=== PATIENT | male | born 1980 | race African-American/Black ===

== ENCOUNTER 2024-09-26 15:34 | Inpatient (IN) | payer MEDICARE, OTHER ==
[~2024-09-26] VITALS: Ht 193 cm; Wt 96.1 kg
--- NOTE | 2024-09-26 15:56 | ED.PDOC ---
HPI Comments This is a 44 year old male presenting to the ED with chief complaint of HTN and chest tightness. 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 Patient relays that due to the cancer, he developed hypertension and has been complaint with his Amlodipine and Losartan. Patient states that he took his BP yesterday and it came back as 210/98 along with having symptoms of headache, white spots in vision, and left hand numbness/cramping, breaking his phone screen when it occurred. Patient notes that he took 2 doses of each medication, drank water, and took a cold shower due to feeling hot, however, 20 minutes later his BP was at 210/145. Patient reports that he could not sleep the whole night due to his anxiety with his high BP, taking it again this morning and coming back at 203/123. Patient was advised by his family to come into the ED for further evaluation. Patient denies any SOB, dizziness, N/V, weakness, vision loss, or abdominal pain. Time Seen by MD: 15:53 Reviewed Notes: Nurses Notes, Medications, Allergies Allergies: Coded Allergies: NO KNOWN ALLERGIES (Unverified , 09/26/24) Information Source: Patient Mode of Arrival: Ambulatory Severity: Moderate Timing: Days Duration: Since onset Prehospital treatment: None Location: Substernal Radiation: No Radiation Quality: Tightness Onset: At Rest Cardiac Risk Factors: HTN Past Medical History PAST MEDICAL HISTORY: Cancer (Nasal cancer), HTN Surgical History (Other): Esophageal surgeries Family History Family History: Reviewed,noncontributory to illness Social History Smoker: Non-Smoker Alcohol: Denies ETOH Use Drugs: Denies Drug Use Lives In: Home Constitutional: denies: chills, diaphoresis, fatigue, fever, malaise, sweats, weakness, others EENTM: reports: blurred vision; denies: double vision, ear bleeding, ear discharge, ear drainage, ear pain, ear ringing, eye pain, eye redness, hearing loss, mouth pain, mouth swelling, nasal discharge, nose bleeding, nose congestion, nose pain, photophobia, tearing, throat pain, throat swelling, voice changes, others Respiratory: denies: cough, hemoptysis, orthopnea, SOB at rest, shortness of breath, SOB with excertion, stridor, wheezing, others Cardiovascular: reports: chest pain; denies: dizzy spells, diaphoresis, Dyspnea on exertion, edema, irregular heart beat, left arm pain, lightheadedness, palpitations, PND, syncope, others Gastrointestinal: denies: abdomen distended, abdominal pain, blood streaked bowels, constipated, diarrhea, dysphagia, difficulty swallowing, hematemesis, melena, nausea, poor appetite, poor fluid intake, rectal bleeding, rectal pain, vomiting, others Genitourinary: denies: burning, dysuria, flank pain, frequency, hematuria, incontinence, penile discharge, penile sore, pain, testicle pain, testicle swelling, urgency, others Neurological: reports: headache, others (Left hand numbness); denies: dizziness, fainting, left sided numbness, left sided weakness, numbness, paresthesia, pre-existing deficit, right sided numbness, right sided weakness, seizure, speech problems, tingling, tremors, weakness Musculoskeletal: denies: back pain, gout, joint pain, joint swelling, muscle pain, muscle stiffness, neck pain, others Integumetry: denies: bruises, change in color, change in hair/nails, dryness, laceration, lesions, lumps, rash, wounds, others Allergic/Immunocompromised: denies: Difficulty Healing, Frequent Infections, Hives, Itching, others Hematologic/Lymphatic: denies: anemia, blood clots, easy bleeding, easy bruising, swollen glands, others Endocrine: denies: excessive hunger, excessive sweating, excessive thirst, excessive urination, flushing, intolerance to cold, intolerance to heat, unexplained weight gain, unexplained weight loss, others Psychiatric: denies: anxiety, bipolar disorder, depression, hopeless, panic disorder, schizophrenia, sleepless, suicidal, others All Other Systems: Reviewed and Negative Physical Exam General Appearance: Moderate Distress HEENT: Normal ENT Inspection, Pharynx Normal, TMs Normal Neck: Full Range of Motion, Non-Tender, Normal, Normal Inspection Respiratory: Chest Non-Tender, Lungs Clear, No Accessory Muscle Use, No R espiratory Distress, Normal Breath Sounds Cardiovascular: No Edema, No JVD, No Murmur, No Gallop, Normal Peripheral Pulses, Regular Rate/Rhythm Breast Exam: Deferred Gastrointestinal: No Organomegaly, Non Tender, No Pulsatile Mass, Normal Bowel Sounds, Soft Genitalia: Deferred Pelvic: Deferred Rectal: Deferred Extremities: No calf tenderness, Normal capillary refill, Pedal edema Musculoskeletal : Apperance: Normal Neurologic: Alert, title vehicle service attendant II-XII nml as Tested, No Motor Deficits, Normal Affect, Normal Mood, No Sensory Deficits Cerebellar Function: Normal Reflexes: Normal Skin: Dry, Normal Color, Warm Lymphatic: No Adenopathy EKG EKG : Pulse Rate (adult): 71 [place]: Normal Cardiac Rhythm: NSR Block: None Hypertrophy: None ST: Normal Was a procedure done? Was a procedure done?: No CP Differential Dx Differential Diagnosis: Angina, IA, Pulmonary Embolus Differential Diagnosis: CHF Differential Diagnosis: Pericarditis X-Ray, Labs, Meds, VS Vital Signs Date Time Temp Pulse Resp B/P (MAP) Pulse Ox O2 Delivery O2 Flow Rate FiO2 09/26/24 16:46 98.2 87 18 136/98 (111) 97 98.2 09/26/24 16:46 87 18 97 Room Air* 0 21 09/26/24 16:05 71 09/26/24 15:58 79 09/26/24 15:54 98.0 88 18 161/88 (112) 95 98.0 Lab Test 09/26/24 16:54 09/26/24 16:08 Range/Units Troponin I High Sensitivity 7 5 </=54 ng/L White Blood Count 8.6 4.4-10.8 10^3/uL Red Blood Count 4.53 4.5-5.90 10^6/uL Hemoglobin 15.1 13.5-17.5 g/dL Hematocrit 45.1 41.0-53.0 % Mean Corpuscular Volume 99.6 80.0-100.0 fL Mean Corpuscular Hemoglobin 33.3 H 28.0-32.0 pg Mean Corpuscular Hemoglobin Concent 33.4 32.0-36.0 g/dL Red Cell Distribution Width 13.5 11.8-14.3 % Platelet Count 170 140-450 10^3/uL Mean Platelet Volume 9.6 6.9-10.8 fL Neutrophils (%) (Auto) 78.2 37.0-80.0 % Lymphocytes (%) (Auto) 11.6 10.0-50.0 % Monocytes (%) (Auto) 5.4 0.0-12.0 % Eosinophils (%) (Auto) 4.0 0.0-7.0 % Basophils (%) (Auto) 0.8 0.0-2.0 % Neutrophils # (Auto) 6.7 1.6-8.6 10 ^3/uL Lymphocytes # (Auto) 1.0 0.4-5.4 10 ^3/uL Monocytes # (Auto) 0.5 0-1.3 10 ^3/uL Eosinophils # (Auto) 0.3 0-0.8 10 ^3/uL Basophils # (Auto) 0.1 0-0.2 10 ^3/uL Nucleated Red Blood Cells 0.0 % Sodium Level 143 136-145 mmol/L Potassium Level 3.5 3.5-5.1 mmol/L Chloride Level 105 98-107 mmol/L Carbon Dioxide Level 29 20-31 mmol/L Anion Gap 9 5-15 Blood Urea Nitrogen 10 9-23 mg/dL Creatinine 1.70 H 0.700-1.30 mg/dL Glomerular Filtration Rate Calc 50 >90 mL/min BUN/Creatinine Ratio 5.9 L 10.0-20.0 Serum Glucose 84 74-106 mg/dL Calcium Level 10.0 8.7-10.4 mg/dL IV Hep-Lock was established The patient's CBC is within normal limits The chemistry panel is within normal limits The troponin level x2 is negative The patient was given hydralazine 15 mg IV push and now the patient's blood pressure is some improved but still elevated We are going to admit the patient to the hospitalist for further management of the patient's blood pressure Time of 1ST Reevaluation: 20:21 Reevaluation 1ST: Unchanged Patient Education/Counseling: Diagnosis, Treatment, Prognosis Family Education/Counseling: No Family Present Additional Information Reviewed patient's previous visit(s): None The following tests were ordered, and results were reviewed by me: Additional information was gathered from interviewing the following independent historian: None I reviewed and agreed with the following test results read by other provider: I discussed treatments and results with medical personnel and: PATIENT Comprehensive systems review obtained and negative except for what is stated in the HPI. SEPSIS Sepsis Screen Physician Orders Urinalysis (09/26/24 15:51) Heplock Iv (09/26/24 15:51) Weather Strip Mechanic (09/26/24 15:51) Blood Pressure (09/26/24 15:51) Pulse Oximetry (09/26/24 15:51) Electrocardigram (09/26/24 16:51) Electrocardigram (09/26/24 18:51) Nicardipine Hcl In Sodium Chlo (Cardene (09/26/24 16:30) Vital Signs Date Time Temp Pulse Resp B/P (MAP) Pulse Ox O2 Delivery O2 Flow Rate FiO2 09/26/24 16:46 98.2 87 18 136/98 (111) 97 98.2 09/26/24 16:46 87 18 97 Room Air* 0 21 09/26/24 16:05 71 09/26/24 15:58 79 09/26/24 15:54 98.0 88 18 161/88 (112) 95 98.0 Laboratory Tests Test 09/26/24 16:08 White Blood Count 8.6 10^3/uL (4.4-10.8) Departure 1 Departure Time of Disposition: 20:21 Impression: Primary Impression: Hypertensive crisis Disposition: ADMITTED INPATIENT Admit to: [facility] Condition: Fair Critical Care Note Critical Care Time?: Yes (45 min-critical care time only) Stability Stability form required: Yes Unstable for transfer: Telemetry monitoring (Telemetry monitoring required), ED Physician Assesment (Clinical assesment) Heart Score Heart Score: Heart Score Response (Comments) Value History Highly Suspicious 2 EKG Normal 0 Age 45-64 1 Risk Factors 1 or 2 risk factors 1 Troponin Normal limit 0 Total 4 I personally scribed for AIDA RIOJAS MD ([email or web address]) on 09/26/24 at 15:56. Electronically submitted by Rafael Francisco ([email or web address]). I personally scribed for AIDA RIOJAS MD ([email or web address]) on 09/26/24 at 16:05. Electronically submitted by Rafael Francisco ([email or web address]). AIDA RIOJAS MD Sep 26, 2024 15:56
--- NOTE | 2024-09-26 16:01 | ECG ---
[facility] Test Date: 2024-09-26 Test Time: 15:58:15 Pat Name: SHARITA HERNANDEZ Department: ER Room: 0214T Gender: M [employer] Operator: ABIGAIL : 1980 Requested By: AIDA RIOJAS Order Number: [id number] Reading MD: Guru Dumont Measurements Intervals [place] Rate: 79 P: 62 KS: 144 QRS: 7 QRSD: 86 T: -6 QT: 374 QTc: 429 Interpretive Statements Sinus rhythm Abnormal R-wave progression, early transition LVH with secondary repolarization abnormality Electronically Signed On 09-29-2024 20:01:35 PDT by Guru Dumont Please click the below link to view image of tracing.
[2024-09-26 16:29] LABS: Basophils # (auto) 0.1 10 ^3/uL (0-0.2); Basophils % (auto) 0.8 % (0.0-2.0); Eosinophils # (auto) 0.3 10 ^3/uL (0-0.8); Hematocrit 45.1 % (41.0-53.0); Hemoglobin 15.1 g/dL (13.5-17.5); Lymphocytes % (auto) 11.6 % (10.0-50.0); Mean Corpuscular Hemoglobin 33.3 pg (28.0-32.0); Mean Corpuscular Hgb Conc. 33.4 g/dL (32.0-36.0); Mean Corpuscular Volume 99.6 fL (80.0-100.0); Monocytes # (auto) 0.5 10 ^3/uL (0-1.3); Monocytes % (auto) 5.4 % (0.0-12.0); Neutrophils # (auto) 6.7 10 ^3/uL (1.6-8.6); Neutrophils % (auto) 78.2 % (37.0-80.0); Platelet Count (auto) 170 10^3/uL (140-450); Red Blood Cells 4.53 10^6/uL (4.5-5.90); Red Cell Distribution Width 13.5 % (11.8-14.3); White Blood Cell 8.6 10^3/uL (4.4-10.8)
[2024-09-26] MEDS ORDERED: [UNRECOGNIZED DRUG - OTHER] IV SCH (16:30)
[2024-09-26 16:36] LABS: Chloride 105 mmol/L (98-107); Sodium 143 mmol/L (136-145)
[2024-09-26 16:37] LABS: Anion Gap 9 (5-15); Carbon Dioxide 29 mmol/L (20-31)
[2024-09-26 16:42] LABS: BUN/Creatinine Ratio 5.9 (10.0-20.0); Blood Urea Nitrogen 10 mg/dL (9-23); Glucose 84 mg/dL (74-106)
[2024-09-26 16:44] LABS: Potassium 3.5 mmol/L (3.5-5.1)
[2024-09-26 16:46] VITALS: PULSE 87; RESP 18; O2SAT 97
[2024-09-26] MEDS: hydrALAZINE HCL 20 MG/ML VL IV ONE (21:05)
[2024-09-26 22:25] LABS: Urine Bacteria None Seen /hpf (None Seen)
[2024-09-26] MEDS ORDERED: MORPHINE SULFATE INJ 2 MG/ml SYRG IV PRN (22:45)
[2024-09-26] MEDS ORDERED: NITROGLYCERIN 0.4 MG SL TAB SL PRN (22:45)
[2024-09-26 22:46] LABS: Urine Blood Negative /uL (Negative); Urine Clarity Clear (Clear); Urine Color Yellow (Yellow); Urine Hyaline Cast FEW /lpf (0 - 2); Urine Mucus FEW (None Seen); Urine Protein, UAD TRACE (Negative); Urine Specific Gravity 1.022 (1.001-1.035); Urine Squamous Epithelial Cell FEW /hpf (<5); Urine Urobilinogen 2 mg/dL (Negative); Urine WBC 1 /HPF (0-3); Urine pH 5.5 (5.0-9.0)
[2024-09-27] VITALS (8 sets, daily range): BP systolic 114–189; BP diastolic 76–122; PULSE 78–89; RESP 15–18; TEMP 96.3–98.4; O2SAT 97–100
--- NOTE | 2024-09-27 00:49 | DVH ---
EXAM: CT HEAD WITHOUT CONTRAST INDICATION: headache, blurred vision, HTN crisis TECHNIQUE: CT of the head without intravenous contrast. Radiation Dose : 1. Head: CT Dose: CTDI volume is 56 mGy. Dose-length product is 1113 mGy*cm The dose indicators for CT are the volume Computed Tomography (CT) Dose Index (CTDIvol) and the Dose Length Product (DLP), and are measured in units of mGy and mGy-cm, respectively. These indicators are not patient dose, but values generated from the CT scanner acquisition factors. The report includes radiation exposure data for exposures received during this examination. COMPARISON: None FINDINGS: There is no evidence of acute intracranial hemorrhage, extra-axial collection, mass effect, midline s hift, herniation or hydrocephalus. The ventricles, sulci and cisterns are age appropriate. The kent-white differentiation is intact. Patchy periventricular and subcortical white matter hypoattenuation is nonspecific but may be related to small vessel ischemic disease. The visualized paranasal sinuses and mastoid air cells are clear. Left maxillary sinusitis. IMPRESSION: 1. No acute intracranial abnormality. 2. Left maxillary sinusitis. Radiation optimization: All CT scans at this facility use at least one of these dose optimization felicita hniques: automated exposure control mA and/or kV adjustment per patient size (includes targeted exam s where dose is matched to clinical indication) or iterative reconstruction.
--- NOTE | 2024-09-27 00:59 | DVHHPRES ---
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 Patient reported that early in the morning yesterday around 8:00 p.m. he had headache following which he took his blood pressure which was around 210/98 and noticed white spots in his vision and few moments after that he started to have cramping in left side of his neck as well as the left hand with a which he was holding his phone in the cramp was so severe that it broke the phone screen from the pressure, his blood pressure at the time was 210/145 mmHg and he panicked and took 2 doses of each amlodipine 10 mg and losartan 50 mg which is his usual hypertensive medication. He was feeling hot and took a cold shower. Patient denied any loss of consci ousness when he had the episode of cramping, no abnormal movements of his limbs, no tongue biting, no fall. He then woke up around 1:00 p.m. and took his blood pressure which was 203/123 following which she took his usual dose of 10 mg amlodipine and losartan 50 mg 1 tablet each came to the hospital for further evaluation. Patient reported mild dizziness and mild chest pain which was pressure-like but denied any shortness of breath, weakness, vision loss. Past medical history: Nasopharyngeal carcinoma treated with radiation 37 cycles and chemotherapy 16 cycles in remission since last 6 years, hypertension, dysphagia Past surgical history: Multiple esophageal dilations due to scarring from the radiation Social history: Denies smoking, alcohol, drug use Home medications: Losartan 50 mg, amlodipine 10 mg Review of Systems Review of Systems Patient seen and examined at the bedside Denies any chest pain, shortness of breath Reports mild headache 3/10 in intensity in the frontal area, no blurry vision, loss of vision Denies nausea, vomiting, abdominal pain Allergies: Coded Allergies: NO KNOWN ALLERGIES (Unverified , 09/26/24) Medications Current Medications Medications Dose Ordered Sig/Maria E Route Start Time Stop Time Status Last Admin Dose Admin Nicardipine/ Sodium Chloride 250 ml @ 50 mls/hr Q5H IV 09/26/24 16:30 Nitroglycerin 0.4 mg Q5MINP PRN SL 09/26/24 22:45 Morphine Sulfate 2 mg Q30M PRN IV 09/26/24 22:45 Amlodipine Besylate 10 mg DAILY PO 09/27/24 10:00 Exam Vital Signs Vital Signs Date Time Temp Pulse Resp B/P (MAP) Pulse Ox O2 Delivery O2 Flow Rate FiO2 09/26/24 22:12 158/102 (120) 09/26/24 20:50 98.2 83 16 97 98.2 09/26/24 16:46 Room Air* 0 21 Exam Gen - no pallor, no icterus, no cyanosis, no clubbing, no LAD, no edema . Skin - Patients skin is warm and dry. HEENT - normocephalic, atraumatic, moist mucous membranes. Neck - full ROM, no LAD, no JVD Pulmonary - B/L equal breath sounds, no crackles, no wheezing, no stridor. cardiovascular - loud S1,S2 heard, no added sounds, no murmurs heard. GI - soft, nontender abdomen. no hepatospleenomegaly. Bowel sounds normoactive Neurological - Patient is A/O X 3 . Bilateral upper extremity strength 5/5, bilateral lower extremity strength 5/5, no facial droop, normal speech, no tr emor, no sensory deficiets. Labs/Xrays Labs Test 09/26/24 22:13 09/26/24 16:54 09/26/24 16:08 Range/Units Urine Color Yellow Yellow Urine Clarity Clear Clear Urine pH 5.5 5.0-9.0 Urine Specific [place] 1.022 1.001-1.035 Urine Protein Trace H Negative Urine Ketones Negative Negative Urine Blood Negative Negative /uL Urine Nitrite Negative Negative Urine Bilirubin Negative Negative Urine Urobilinogen 2 H Negative mg/dL Urine Leukocyte Esterase Negative Negative /uL Urine RBC 1 0 - 3 /hpf Urine Microscopic WBC 1 0-3 /HPF Urine Squamous Epithelial Cells Few <5 /hpf Urine Bacteria None seen None Seen /hpf Urine Hyaline Casts Few 0 - 2 /lpf Urine Mucus Few None Seen Urine Glucose Normal Normal mg/dL Troponin I High Sensitivity 7 </=54 ng/L White Blood Count 8.6 4.4-10.8 10^3/uL Red Blood Count 4.53 4.5-5.90 10^6/uL Hemoglobin 15.1 13.5-17.5 g/dL Hematocrit 45.1 41.0-53.0 % Mean Corpuscular Volume 99.6 80.0-100.0 fL Mean Corpuscular Hemoglobin 33.3 H 28.0-32.0 pg Mean Corpuscular Hemoglobin Concent 33.4 32.0-36.0 g/dL Red Cell Distribution Width 13.5 11.8-14.3 % Platelet Count 170 140-450 10^3/uL Mean Platelet Volume 9.6 6.9-10.8 fL Neutrophils (%) (Auto) 78.2 37.0-80.0 % Lymphocytes (%) (Auto) 11.6 10.0-50.0 % Monocytes (%) (Auto) 5.4 0.0-12.0 % Eosinophils (%) (Auto) 4.0 0.0-7.0 % Basophils (%) (Auto) 0.8 0.0-2.0 % Neutrophils # (Auto) 6.7 1.6-8.6 10 ^3/uL Lymphocytes # (Auto) 1.0 0.4-5.4 10 ^3/uL Monocytes # (Auto) 0.5 0-1.3 10 ^3/uL Eosinophils # (Auto) 0.3 0-0.8 10 ^3/uL Basophils # (Auto) 0.1 0-0.2 10 ^3/uL Nucleated Red Blood Cells 0.0 % Sodium Level 143 136-145 mmol/L Potassium Level 3.5 3.5-5.1 mmol/L Chloride Level 105 98-107 mmol/L Carbon Dioxide Level 29 20-31 mmol/L Anion Gap 9 5-15 Blood Urea Nitrogen 10 9-23 mg/dL Creatinine 1.70 H 0.700-1.30 mg/dL Glomerular Filtration Rate Calc 50 >90 mL/min BUN/Creatinine Ratio 5.9 L 10.0-20.0 Serum Glucose 84 74-106 mg/dL Calcium Level 10.0 8.7-10.4 mg/dL Assessment/Plan Assessment/Plan Hypertensive crisis History of hypertensive heart disease MABEL on CKD likely due to VMN History of nasopharyngeal carcinoma Dysphagia with History of esophageal scarring status post radiation, multiple esophageal dilatation - head CT shows no acute intracranial abnormality - echo pending - amlodipine and chlorthalidone - losartan held because of MABEL - IV hydralazine - with the patient's blood pressure is not controlled and remain SBP> 180, we will be started on nicardipine drip PUD prophylaxis: Protonix Goals of care discussed with the patient for over 19 minutes. Full code Time spent: 35 minutes Plan discussed with Dr. Miller Plan discussed with: Patient My Orders Orders - HAN GRULLON Procedure Category Date Status Time Admit ADMIT 09/26/24 Transmitted 22:42 Nitroglycerin PHA 09/26/24 In Process Sublingual (Ntrostat 22:45 Morphine Sulfate PHA 09/26/24 In Process Injection 22:45 Oxygen By Nasal RT 09/26/24 Transmitted Cannula 22:42 Stat Ekg For Chest DEVIKA 09/26/24 In Process Pain 22:42 Notify Md Of Changes DEVIKA 09/26/24 In Process From Base 22:42 Loft Worker Pile Driving For DEVIKA 09/26/24 In Process 24 Hours 22:42 Emergency Dysrhythmia DEVIKA 09/26/24 In Process Protocol 22:42 Amlodipine Tablet PHA 09/27/24 In Process (Norvasc Tablet) 10:[address] 09/26/24 Resulted 23:00 Date of Service: Sep 26, 2024 Billing Provider: GIOVANNI MILLER MD Common Visit Codes: [id number] INP/OBS CARE (HIGH) Secondary Visit Codes: [id number] CARE PLAN 30 MINUTES HAN GRULLON RESIDENT Sep 27, 2024 00:59
[2024-09-27] MEDS: hydrALAZINE HCL 20 MG/ML VL IV PRN (02:46)
[2024-09-27] MEDS ORDERED: hydrALAZINE HCL 20 MG/ML VL IV PRN (03:15)
[2024-09-27] MEDS ORDERED: ONDANSETRON HCL 4 MG/2 ML VIAL IV PRN (03:30)
[2024-09-27] MEDS: PANTOPRAZOLE 40 MG TAB PO SCH (06:28)
[2024-09-27] MEDS: CHLORTHALIDONE 25 MG TAB PO ONE (06:28)
[2024-09-27 08:09] LABS: Basophils # (auto) 0.1 10 ^3/uL (0-0.2); Basophils % (auto) 0.7 % (0.0-2.0); Eosinophils # (auto) 0.5 10 ^3/uL (0-0.8); Hematocrit 42.5 % (41.0-53.0); Hemoglobin 14.4 g/dL (13.5-17.5); Lymphocytes # (auto) 1.2 10 ^3/uL (0.4-5.4); Lymphocytes % (auto) 15.2 % (10.0-50.0); Mean Corpuscular Hemoglobin 33.4 pg (28.0-32.0); Mean Corpuscular Hgb Conc. 33.9 g/dL (32.0-36.0); Mean Corpuscular Volume 98.4 fL (80.0-100.0); Monocytes # (auto) 0.6 10 ^3/uL (0-1.3); Monocytes % (auto) 7.6 % (0.0-12.0); Neutrophils # (auto) 5.7 10 ^3/uL (1.6-8.6); Neutrophils % (auto) 70.5 % (37.0-80.0); Nucleated Red Blood Cells % 0.1 %; Platelet Count (auto) 167 10^3/uL (140-450); Red Blood Cells 4.31 10^6/uL (4.5-5.90); Red Cell Distribution Width 13.4 % (11.8-14.3)
[2024-09-27 08:24] LABS: Anion Gap 9 (5-15); BUN/Creatinine Ratio 6.5 (10.0-20.0); Blood Urea Nitrogen 11 mg/dL (9-23); Calcium 9.8 mg/dL (8.7-10.4); Carbon Dioxide 29 mmol/L (20-31); Chloride 104 mmol/L (98-107); Glucose 101 mg/dL (74-106); Sodium 142 mmol/L (136-145); Total Protein 7.6 g/dL (5.7-8.2)
[2024-09-27 08:25] LABS: Alanine Aminotransferase < 9 U/L (7-40); Albumin 4.4 g/dL (3.2-4.8); Alkaline Phosphatase 26 U/L (46-116); Aspartate Aminotransferase 13 U/L (<34); Bilirubin, Total 0.6 mg/dL (0.2-1.0); Potassium 3.5 mmol/L (3.5-5.1)
[2024-09-27] MEDS: NIFEdipine ER 30 MG TAB PO SCH (09:12)
[2024-09-27] MEDS ORDERED: amLODIPine BESYLATE 5 MG TAB PO SCH (10:00)
--- NOTE | 2024-09-27 10:10 | DVH ---
CHEST RADIOGRAPH Indication: htn Technique: Single frontal view of the chest was obtained Comparison: None FINDINGS: Lines and Tubes: None Lungs: No focal consolidation. Pleura: No effusion. No pneumothorax. Cardiomediastinal contours: Unremarkable Bones: No acute osseous abnormality. IMPRESSION: No acute cardiopulmonary disease.
[2024-09-27] MEDS ORDERED: NIFEdipine ER 30 MG TAB PO ONE (10:15)
[2024-09-27 10:45] LABS: Albumin 4.4 g/dL (3.2-4.8); Aspartate Aminotransferase 14 U/L (<34); Magnesium 2.2 mg/dL (1.6-2.6); Total Protein 7.7 g/dL (5.7-8.2)
[2024-09-27 10:46] LABS: Alanine Aminotransferase < 9 U/L (7-40); Alkaline Phosphatase 26 U/L (46-116); Bilirubin, Direct 0.2 mg/dL (<0.3); Bilirubin, Total 0.5 mg/dL (0.2-1.0)
--- NOTE | 2024-09-27 12:27 | DVH ---
PROCEDURE: MRI BRAIN HEAD WO CONTRAST Indication: r/o stroke COMPARISON: 09/28/2019 TECHNIQUE: Multiplanar multisequence images of the brain are obtained. FINDINGS: There is no abnormal diffusion restriction. There is no intracranial hemorrhage. No extra-axial flui d collection, mass effect or midline shift. The ventricles are midline and normal in size. The cister ns are patent. Normal intracranial flow voids are preserved. No abnormal susceptibility signal. Left mastoid effusion. Frontal, ethmoid, sphenoid and maxillary sinus disease most pronounced within the ethmoids, left sphenoid and left maxillary sinus. The visualized orbits are unremarkable. IMPRESSION: No acute cerebrovascular ischemia. Extensive paranasal sinus disease. Left mastoid effusion.
[2024-09-27 12:44] LABS: Protein, Urine 15.1 mg/dL (1-14)
[2024-09-27 12:46] LABS: Creatinine, Urine 144.65 mg/dL (30.0-125.0); Urine Protein/Creatinine Ratio 0.1
[2024-09-27 12:48] LABS: Amphetamine Screen, Urine Neg (NEGATIVE); Barbiturate Scree,Urine Neg (NEGATIVE); Benzodiazephine Screen, Urine Neg (NEGATIVE); Cannabinoid Screen, Urine Neg (NEGATIVE); Cocaine Screen, Urine Neg (NEGATIVE); Opiate Scree,Urine Neg (NEGATIVE); Phencyclidine Screen, Urine Neg (NEGATIVE)
[2024-09-27] MEDS: ASPirin 81 mg TAB PO ONE (12:53)
[2024-09-27 13:03] LABS: COVID19 ANTIGEN SOFIA FIA NEGATIVE (NEGATIVE); Rapid Influenza A Negative (Negative); Rapid Influenza B Negative (Negative)
--- NOTE | 2024-09-27 16:27 | DVHPNRES ---
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 Patient reported that early in the morning yesterday around 8:00 p.m. he had headache following which he took his blood pressure which was around 210/98 and noticed white spots in his vision and few moments after that he started to have cramping in left side of his neck as well as the left hand with a which he was holding his phone in the cramp was so severe that it broke the phone screen from the pressure, his blood pressure at the time was 210/145 mmHg and he panicked and took 2 doses of each amlodipine 10 mg and losartan 50 mg which is his usual hypertensive medication. He was feeling hot and took a cold shower. Patient denied any loss of consciousness when he had the episode of cramping, no abnormal movements of his limbs, no tongue biting, no fall. He then woke up around 1:00 p.m. and took his blood pressure which was 203/123 following which she took his usual dose of 10 mg amlodipine and losartan 50 mg 1 tablet each came to the hospital for further evaluation. Patient reported mild dizziness and mild chest pain which was pressure-like but denied any shortness of breath, weakness, vision loss. Past medical history: Nasopharyngeal carcinoma treated with radiation 37 cycles and chemotherapy 16 cycles in remission since last 6 years, hypertension, dysphagia Past surgical history: Multiple esophageal dilations due to scarring from the radiation Social history: Denies smoking, alcohol, drug use Home medications: Losartan 50 mg, amlodipine 10 mg Patient seen and examined in ER holding, reports left arm numbness. MRI brain ordered unremarkable for stroke. Started aspirin given concerns for TIA. Started atorvastatin. Objective vital signs Vital Sign Date Time Temp Pulse Resp B/P (MAP) Pulse Ox O2 Delivery O2 Flow Rate FiO2 09/27/24 14:15 97.5 85 15 126/76 (93) 97 97.5 09/26/24 16:46 Room Air* 0 21 medications Current Medications Medications Dose Ordered Sig/Maria E Route Start Time Stop Time Status Last Admin Dose Admin Nitroglycerin 0.4 mg Q5MINP PRN SL 09/26/24 22:45 Morphine Sulfate 2 mg Q30M PRN IV 09/26/24 22:45 Hydralazine HCl 10 mg Q6HP PRN IV 09/27/24 03:15 Ondansetron HCl 4 mg Q8HPRN PRN IV 09/27/24 03:30 Pantoprazole Sodium 40 mg DAILY@0600 PO 09/27/24 06:00 09/27/24 06:28 40 MG Nifedipine 120 mg DAILY PO 09/27/24 10:00 09/27/24 09:12 120 MG Aspirin 81 mg DAILY PO 09/28/24 10:00 Examination Patient sitting in a chair comfortably, no acute distress General: Well-built, afebrile, palor, mucosae are moist Cardiovascular: Regular S1 and S2. No murmurs, gallops or rubs. No JVD elevation. No pedal edema Respiratory: Normal B/L air entry on room air. Clear lung sounds on auscultation Abdomen: Soft, nontender, nondistended, normoactive bowel sounds, no rebound tenderness, no organomegaly, no masses Genitourinary: Deferred MSK/skin: Mobilizes 4 limbs. Skin is dry and warm Neurological: No motor, no sensitive deficits, normal speech. Pupils are isocoric and reactive. Psych/Mental Status: A/Ox3 laboratory and microbiology Laboratory Tests 09/27/24 07:12 Test 09/27/24 07:12 Range/Units Serum Glucose 101 74-106 mg/dL Labs and/or images reviewed: Labs reviewed by me, Image(s) reviewed by me Problem List/Assessment/Plan Problem List/Assessment/Plan Rule out acute stroke Head CT unremarkable for stroke, MRI brain unremarkable stroke Started aspirin and atorvastatin Hypertensive emergency Hypertensive heart disease Echocardiogram pending Continue amlodipine and losartan home medications Discontinue nifedipine drip ? Acute kidney injury superimposed on CKD stage 3 IV fluids FENA 1.0 History of nasopharyngeal carcinoma status post CTX and RT X, in remission since 2019 Follows [facility] Dysphagia secondary to esophageal scarring Monitor Patient for [facility] for repeated esophageal dilation. Vitamin-D deficiency Supplemented Pantoprazole 40 mg daily Plan discussed with patient in which all questions have been answered Goals of care discussed for more than 20 minutes, full code status Case discussed with Dr. Montano Plan discussed with: Patient My Orders My Orders Orders - ALI,YAJAIRA RESIDENT Procedure Category Date Status Time Chest Xray 1 View XY 09/27/24 Resulted 08:33 Nifedipine Er PHA 09/27/24 In Process (Procardia Xl 10:00 Brain Head Wo Contrast MRI 09/27/24 Resulted 11:28 Aspirin Tablet PHA 09/28/24 In Process 10:00 Date of Service: Sep 27, 2024 Billing Provider: BEATRICE FONSECA MD Common Visit Codes: [id number] INP/OBS CARE(HIGH) YAJAIRA LEWIS Sep 27, 2024 16:27 BEATRICE FONSECA MD Oct 01, 2024 22:12
[2024-09-27] MEDS: ERGOCALCIFEROL 50,000 UNIT(1.25MG) CAP PO SCH (16:30)
[2024-09-28 01:00] VITALS: BP 142/99; PULSE 85; RESP 18; TEMP 98.2; O2SAT 98
[2024-09-28] MEDS: MELATONIN 5 MG TAB ONE (01:03)
[2024-09-28] MEDS: MELATONIN 5 MG TAB PO ONE (01:04)
[2024-09-28] MEDS: ACETAMINOPHEN 325 MG TAB PO ONE (01:10)
[2024-09-28] MEDS: ACETAMINOPHEN 325 MG TAB PO PRN (02:16)
[2024-09-28 05:00] VITALS: BP 127/95; PULSE 73; RESP 18; TEMP 97.5; O2SAT 98
[2024-09-28 06:53] LABS: Chloride 102 mmol/L (98-107); Potassium 3.8 mmol/L (3.5-5.1); Sodium 141 mmol/L (136-145)
[2024-09-28 06:54] LABS: Anion Gap 9 (5-15); Carbon Dioxide 30 mmol/L (20-31)
[2024-09-28 06:55] LABS: Calcium 9.9 mg/dL (8.7-10.4)
[2024-09-28 07:00] LABS: BUN/Creatinine Ratio 7.3 (10.0-20.0); Blood Urea Nitrogen 13 mg/dL (9-23)
[2024-09-28 07:02] LABS: Glucose 108 mg/dL (74-106)
[2024-09-28] MEDS: CYANOCOBALAMIN (B-12) 1000 MCG/1 ML VIAL IM ONE (08:00)
[2024-09-28 09:00] VITALS: BP 133/85; PULSE 51; RESP 18; TEMP 97.8; O2SAT 99
[2024-09-28] MEDS: ASPirin 81 mg TAB PO SCH (09:43)
[2024-09-28] MEDS: LOSARTAN POTASSIUM 50 MG TAB PO SCH (09:43)
[2024-09-28] MEDS: amLODIPine BESYLATE 5 MG TAB PO SCH (09:44)
[2024-09-28] MEDS: LORazepam 2MG/ML-1ML VIAL IV ONE (12:21)
[2024-09-28 13:00] VITALS: BP 115/78; PULSE 71; RESP 18; TEMP 97.6; O2SAT 98
[2024-09-28] MEDS: SODIUM CHLORIDE 0.9% 500 ML IV ONE (13:58)
[2024-09-28] MEDS ORDERED: SODIUM CHLORIDE 0.9% 500 ML IV ONE (14:45)
--- NOTE | 2024-09-28 16:35 | DVHPNRES ---
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 Patient reported that early in the morning yesterday around 8:00 p.m. he had headache following which he took his blood pressure which was around 210/98 and noticed white spots in his vision and few moments after that he started to have cramping in left side of his neck as well as the left hand with a which he was holding his phone in the cramp was so severe that it broke the phone screen from the pressure, his blood pressure at the time was 210/145 mmHg and he panicked and took 2 doses of each amlodipine 10 mg and losartan 50 mg which is his usual hypertensive medication. He was feeling hot and took a cold shower. Patient denied any loss of consciousness when he had the episode of cramping, no abnormal movements of his limbs, no tongue biting, no fall. He then woke up around 1:00 p.m. and took his blood pressure which was 203/123 following which she took his usual dose of 10 mg amlodipine and losartan 50 mg 1 tablet each came to the hospital for further evaluation. Patient reported mild dizziness and mild chest pain which was pressure-like but denied any shortness of breath, weakness, vision loss. Past medical history: Nasopharyngeal carcinoma treated with radiation 37 cycles and chemotherapy 16 cycles in remission since last 6 years, hypertension, dysphagia Past surgical history: Multiple esophageal dilations due to scarring from the radiation Social history: Denies smoking, alcohol, drug use Home medications: Losartan 50 mg, amlodipine 10 mg 09/27-Patient seen and examined in ER holding, reports left arm numbness. MRI brain ordered unremarkable for stroke. Started aspirin given concerns for TIA. Started atorvastatin. 09/28-patient seen and examined at bedside. Reports feeling better. Echocardiogram pending. IV hydration provided, follow up with BmP Objective vital signs Vital Sign Date Time Temp Pulse Resp B/P (MAP) Pulse Ox O2 Delivery O2 Flow Rate FiO2 09/28/24 09:44 133/65 09/28/24 09:00 97.8 51 18 99 97.8 09/27/24 20:00 Room Air* 0 21 Total Intake and Output 09/27/24 09/27/24 09/28/24 15:00 23:00 07:00 Intake Total 240 ml 400 ml Balance 240 ml 400 ml medications Current Medications Medications Dose Ordered Sig/Maria E Route Start Time Stop Time Status Last Admin Dose Admin Nitroglycerin 0.4 mg Q5MINP PRN SL 09/26/24 22:45 Morphine Sulfate 2 mg Q30M PRN IV 09/26/24 22:45 Hydralazine HCl 10 mg Q6HP PRN IV 09/27/24 03:15 Ondansetron HCl 4 mg Q8HPRN PRN IV 09/27/24 03:30 Pantoprazole Sodium 40 mg DAILY@0600 PO 09/27/24 06:00 09/28/24 06:26 40 MG Aspirin 81 mg DAILY PO 09/28/24 10:00 09/28/24 09:43 81 MG Amlodipine Besylate 10 mg DAILY PO 09/28/24 10:00 09/28/24 09:44 10 MG Losartan Potassium 50 mg DAILY PO 09/28/24 10:00 09/28/24 09:43 50 MG Ergocalciferol 50,000 unit Q7D PO 09/27/24 16:30 Acetaminophen 650 mg Q6HP PRN PO 09/28/24 01:45 09/28/24 02:16 650 MG Examination Patient sitting in a chair comfortably, no acute distress General: Well-built, afebrile, palor, mucosae are moist Cardiovascular: Regular S1 and S2. No murmurs, gallops or rubs. No JVD elevation. No pedal edema Respiratory: Normal B/L air entry on room air. Clear lung sounds on auscultation Abdomen: Soft, nontender, nondistended, normoactive bowel sounds, no rebound tenderness, no organomegaly, no masses Genitourinary: Deferred MSK/skin: Mobilizes 4 limbs. Skin is dry and warm Neurological: No motor, no sensitive deficits, normal speech. Pupils are isocoric and reactive. Psych/Mental Status: A/Ox3 laboratory and microbiology Laboratory Tests 09/28/24 06:06 09/27/24 07:12 Test 09/28/24 06:06 Range/Units Serum Glucose 108 H 74-106 mg/dL Labs and/or images reviewed: Labs reviewed by me, Image(s) reviewed by me Problem List/Assessment/Plan Problem List/Assessment/Plan Rule out acute stroke Head CT unremarkable for stroke, MRI brain unremarkable stroke Started aspirin and atorvastatin Hypertensive emergency Hypertensive heart disease Echocardiogram pending Continue amlodipine and losartan home medications Discontinue nifedipine drip ? Acute kidney injury superimposed on CKD stage 3 IV fluids FENA 1.0 History of nasopharyngeal carcinoma status post CTX and RT X, in remission since 2019 Follows [facility] Dysphagia secondary to esophageal scarring [facility] dilation. Vitamin-D deficiency Supplemented Pantoprazole 40 mg daily Plan discussed with patient in which all questions have been answered Goals of care discussed for more than 20 minutes, full code status Case discussed with Dr. Montano Plan discussed with: Patient My Orders My Orders Orders - YAJAIRA LEWIS Procedure Category Date Status Time * Judo Instructor CONS 09/28/24 Transmitted Consult Basic Metabolic Panel LAB 09/28/24 Logged 16:22 Date of Service: Sep 28, 2024 Billing Provider: BEATRICE FONSECA MD Common Visit Codes: [id number] INP/OBS CARE(HIGH) YAJAIRA LEWIS Sep 28, 2024 16:34 BEATRICE FONSECA MD Oct 01, 2024 22:22
[2024-09-28 17:00] VITALS: BP 134/88; PULSE 76; RESP 18; TEMP 97.4; O2SAT 98
[2024-09-28] MEDS ORDERED: AML5T PO (17:05)
[2024-09-28] MEDS ORDERED: LOSA-534 PO (17:05)
[2024-09-28] MEDS ORDERED: PANT40T PO (17:05)
[2024-09-28] MEDS ORDERED: ASPI-325 PO (17:05)
[2024-09-28 18:04] VITALS: BP 133/65; PULSE 71; RESP 18; TEMP 36.3; O2SAT 98
[2024-09-28 18:56] LABS: Chloride 104 mmol/L (98-107); Sodium 141 mmol/L (136-145)
[2024-09-28 18:57] LABS: Anion Gap 7 (5-15); Carbon Dioxide 30 mmol/L (20-31)
[2024-09-28 18:58] LABS: Calcium 10.2 mg/dL (8.7-10.4)
[2024-09-28 19:02] LABS: BUN/Creatinine Ratio 6.8 (10.0-20.0); Blood Urea Nitrogen 11 mg/dL (9-23); Glucose 100 mg/dL (74-106)
[2024-09-28] MEDS ORDERED: CHOL500021 OR (19:32)
--- NOTE | 2024-09-28 19:32 | DVHDSRES ---
Discharge Summary Date of Admission Resident Creating Document: YAJAIRA LEWIS RESIDENT Sep 26, 2024 at 22:42 Date of Discharge: Sep 28, 2024 Labs/Diagnostic Data: Laboratory Results Test 09/28/24 18:38 09/28/24 06:06 09/27/24 11:00 09/27/24 07:12 B-Type Natriuretic Peptide 15.65 pg/mL (0-100) Urine Creatinine 144.65 mg/dL (30.0-125.0) Urine Protein/Creatinine Ratio 0.10 Urine Sodium 125 mmol/L (40-220) Urine Total Protein 15.1 mg/dL (1-14) Urine Opiates Screen Neg (NEGATIVE) Urine Fentanyl Screen Neg (NEGATIVE) Urine Barbiturates Screen Neg (NEGATIVE) Urine Phencyclidine Screen Neg (NEGATIVE) Urine Amphetamines Screen Neg (NEGATIVE) Urine Benzodiazepines Screen Neg (NEGATIVE) Urine Cocaine Screen Neg (NEGATIVE) Urine Cannabinoids Screen Neg (NEGATIVE) Influenza Type A Antigen Negative (Negative) Influenza Type B Antigen Negative (Negative) SARS-CoV-2 Antigen (Rapid) Negative (NEGATIVE) White Blood Count 8.0 10^3/uL (4.4-10.8) Red Blood Count 4.31 10^6/uL (4.5-5.90) Hemoglobin 14.4 g/dL (13.5-17.5) Hematocrit 42.5 % (41.0-53.0) Mean Corpuscular Volume 98.4 fL (80.0-100.0) Mean Corpuscular Hemoglobin 33.4 pg (28.0-32.0) Mean Corpuscular Hemoglobin Concent 33.9 g/dL (32.0-36.0) Red Cell Distribution Width 13.4 % (11.8-14.3) Platelet Count 167 10^3/uL (140-450) Mean Platelet Volume 9.4 fL (6.9-10.8) Neutrophils (%) (Auto) 70.5 % (37.0-80.0) Lymphocytes (%) (Auto) 15.2 % (10.0-50.0) Monocytes (%) (Auto) 7.6 % (0.0-12.0) Eosinophils (%) (Auto) 6.0 % (0.0-7.0) Basophils (%) (Auto) 0.7 % (0.0-2.0) Neutrophils # (Auto) 5.7 10 ^3/uL (1.6-8.6) Lymphocytes # (Auto) 1.2 10 ^3/uL (0.4-5.4) Monocytes # (Auto) 0.6 10 ^3/uL (0-1.3) Eosinophils # (Auto) 0.5 10 ^3/uL (0-0.8) Basophils # (Auto) 0.1 10 ^3/uL (0-0.2) Nucleated Red Blood Cells 0.1 % Hemoglobin A1c 4.7 % A1C (<5.7) Uric Acid 6.2 mg/dL (3.7-9.2) Magnesium Level 2.2 mg/dL (1.6-2.6) Total Bilirubin 0.5 mg/dL (0.2-1.0) Direct Bilirubin 0.2 mg/dL (<0.3) Aspartate Amino Transferase (AST) 14 U/L (<34) Alanine Aminotransferase (ALT) < 9 U/L (7-40) Alkaline Phosphatase 26 U/L (46-116) Total Protein 7.7 g/dL (5.7-8.2) Albumin 4.4 g/dL (3.2-4.8) Vitamin B12 Level 373 pg/mL (211-911) Vitamin D 25-Hydroxy 24.1 ng/mL (30.0-100) Thyroid Stimulating Hormone (TSH) 2.35 uIU/mL (0.55-4.78) Test 09/26/24 22:13 09/26/24 16:54 Urine Color Yellow (Yellow) Urine Clarity Clear (Clear) Urine pH 5.5 (5.0-9.0) Urine Specific [place] 1.022 (1.001-1.035) Urine Protein Trace (Negative) Urine Ketones Negative (Negative) Urine Blood Negative /uL (Negative) Urine Nitrite Negative (Negative) Urine Bilirubin Negative (Negative) Urine Urobilinogen 2 mg/dL (Negative) Urine Leukocyte Esterase Negative /uL (Negative) Urine RBC 1 /hpf (0 - 3) Urine Microscopic WBC 1 /HPF (0-3) Urine Squamous Epithelial Cells Few /hpf (<5) Urine Bacteria None seen /hpf (None Seen) Urine Hyaline Casts Few /lpf (0 - 2) Urine Mucus Few (None Seen) Urine Glucose Normal mg/dL (Normal) Troponin I High Sensitivity 7 ng/L (</=54) Other Laboratory Tests 09/27/24 07:12 Brief Hx & Hospital Course: Patient is a 44-year-old male with a past medical history of hypertension, 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 Patient reported that early in the morning yesterday around 8:00 p.m. he had headache following which he took his blood pressure which was around 210/98 and noticed white spots in his vision and few moments after that he started to have cramping in left side of his neck as well as the left hand with a which he was holding his phone in the cramp was so severe that it broke the phone screen from the pressure, his blood pressure at the time was 210/145 mmHg and he panicked and took 2 doses of each amlodipine 10 mg and losartan 50 mg which is his usual hypertensive medication. He was feeling hot and took a cold shower. Patient denied any loss of consciousness when he had the episode of cramping, no abnormal movements of his limbs, no tongue biting, no fall. He then woke up around 1:00 p.m. and took his blood pressure which was 203/123 following which she took his usual dose of 10 mg amlodipine and losartan 50 mg 1 tablet each came to the hospital for further evaluation. Patient reported mild dizziness and mild chest pain which was pressure-like but denied any shortness of breath, weakness, vision loss. Past medical history: Nasopharyngeal carcinoma treated with radiation 37 cycles and chemotherapy 16 cycles in remission since last 6 years, hypertension, dysphagia Past surgical history: Multiple esophageal dilations due to scarring from the radiation Social history: Denies smoking, alcohol, drug use Home medications: Losartan 50 mg, amlodipine 10 mg During the admission, head CT was completed which was unremarkable for stroke, aspirin and atorvastatin were started. consequently MRI was done which ruled out stroke. Given the hypertensive emergency, patient was started on nifedipine drip which was later discontinued and his home medications were restarted including amlodipine and losartan. Patient had MABEL which was improved with IV fluids. FENA 1.0. Patient reported feeling better and his and numbness resolved in the left upper extremity. Discharge planning: Continue aspirin atorvastatin daily Follow up with primary care physician within 7 days Continue follow up with heme oncologist Operations or Procedures ORDERING PHYSICIAN: YAJAIRA LEWIS RESIDENT PROCEDURE(s): MBHL - BRAIN HEAD WO CONTRAST REASON: r/o stroke ORDER NUMBER(s): [id number], ACCESSION NUMBER(s): [id number] PROCEDURE: MRI BRAIN HEAD WO CONTRAST Indication: r/o stroke COMPARISON: 09/28/2019 TECHNIQUE: Multiplanar multisequence images of the brain are obtained. FINDINGS: There is no abnormal diffusion restriction. There is no intracranial hemorrhage. No extra-axial fluid collection, mass effect or midline shift. The ventricles are midline and normal in size. The cisterns are patent. Normal intracranial flow voids are preserved. No abnormal susceptibility signal. Left mastoid effusion. Frontal, ethmoid, sphenoid and maxillary sinus disease most pronounced within the ethmoids, left sphenoid and left maxillary sinus. The visualized orbits are unremarkable. IMPRESSION: No acute cerebrovascular ischemia. Extensive paranasal sinus disease. Left mastoid effusion. 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 Patient was counseled about treatment plan, medications, possible side effects, patientverbalized understanding. All questions were answered to the best of my ability. This discharge took greater then 30 minutes in planning, reviewing documentation, counseling the patient, and discussing with other team members." ASSESSMENT ASSESSMENT Assessment Ruled out acute stroke Likely TIA Hypertensive emergency Hypertensive heart disease Date of Service: Sep 28, 2024 Billing Provider: BEATRICE FONSECA MD Common Visit Codes: [id number] DISCH DAY >30min YAJAIRA LEWIS RESIDENT Sep 28, 2024 19:32 BEATRICE FONSECA MD Oct 01, 2024 22:39
--- NOTE | 2024-09-30 00:46 | DVHSR ---
APPROVED REPORT EXAM: Two-dimensional and M-mode echocardiogram with Doppler and color Doppler. Blood Pressure: 147/95 mmHg INDICATION Uncontrolled HTN RISK FACTORS Height: 6' 4", Weight: 214 DIMENSIONS LVDd4.6 (3.8-5.7cm)LA (2D)3.6 (1.9-4.0cm)Aortic Root3.7 (2.0-3.7cm) LVDs3.2 (2.5-4.0cm)LA (MM) (1.9-4.0cm)Aortic Cusp Exc2.0 (1.5-2.0cm) EF (%) 57.0 (55-70%)Rt. Atrium4.7 (1.9-4.0cm)Asc. Aorta cm IVSd1.2 (0.7-1.1cm)RV (D) (1.8-2.4cm) PWd1.2 (0.7-1.1cm) Mitral Valve MitralMitral Stenosis E wave0.60m/sMV Mean GR.mmHg A wave0.70m/sMV Peak GR.mmHg E/A ratio0.92D MVAcm2 Aortic Valve Aortic ValveAortic Stenosis V10.90m/Kelly Mean GR.3mmHg V21.10m/Kelly Peak GR.5mmHg LVOT Diameter2.4 (1.8-2.4cm)Doppler AVA3.70cm2 Pulmonic Valve V20.60m/s Tricuspid Valve TR Velocity2.80m/s [id number] Conclusion NORMAL LV EF AND IS 65% NORMAL VALVES SLIGHTLY DILATED RA RVSP IS 40 MMOF HG AND IS HIGH MILD PULMONARY HYPERTENSION NO EFFUSION
== END 2024-09-28 19:45 | disposition home or self-care (01) | DRG 304 ==
LOC: ER 15:34 → OVERFLOW 22:42 → TELE-CENTR 09-27 16:10
PROVIDERS: ADMIT Student in an Organized Health Care Education/Training Program; ATTEND Student in an Organized Health Care Education/Training Program
DX: I16.1 Hypertensive emergency (principal); N17.0 Acute kidney failure with tubular necrosis; Z20.822 Contact with and (suspected) exposure to COVID-19; E55.9 Vitamin D deficiency, unspecified; R13.10 Dysphagia, unspecified; I13.10 Hypertensive heart and chronic kidney disease without heart failure, with stage 1 through stage 4 chronic kidney disease, or unspecified chronic kidney disease; N18.30 Chronic kidney disease, stage 3 unspecified; Z85.22 Personal history of malignant neoplasm of nasal cavities, middle ear, and accessory sinuses
CPT/HCPCS: 36415; 70450; 70551; 71045; 80048; 80053; 80076; 80307; 81001; 82306; 82570; 82607; 83036; 83735; 83880; 84156; 84300; 84443; 84484; 84550; 85025; 87426; 87804; 93005; 93306; 96374; G0378